=== PATIENT | female | born 1995 | race Two or more races ===

== ENCOUNTER 2024-11-17 11:10 | Day surgery (SDC) | payer MEDICAID, SELFPAY ==
[2024-11-16 14:30] VITALS: BMI 33.1
--- NOTE | 2024-11-16 15:36 | ESHP_ITS ---
RE: DUC MENDEZ : 1995 DATE OF ADMISSION: 11/17/2024 The patient came to my office on 11/16/2024 for detailed preop history and physical examination. HISTORY OF PRESENT COMPLAINT: The patient fell down and injured her right wrist. The injury happened about 2 weeks back. The patient went to emergency room and x-ray was obtained and splint was given. I saw her for the first time on 11/14/2024. The patient has a Clifford fracture. The injury happened on 11/04/2024. There is some numbness in the outer 4 digits as well. PAST MEDICAL HISTORY: No history of diabetes mellitus, high blood pressure, asthma or seizures. PAST SURGICAL HISTORY: Nil. DRUG HISTORY: Nil except pain medication. ALLERGIES: NIL KNOWN. FAMILY HISTORY AND SOCIAL HISTORY: Noncontributory in this case. PHYSICAL EXAMINATION: GENERAL: Normal built lady. BMI is 30. Height is 63 inches and weight is 175 pounds. VITAL SIGNS: Pulse is 92 per minute and blood pressure is 140/86. NECK: Soft and supple. No masses felt. Trachea is centrally replaced. CARDIOVASCULAR SYSTEM: First and second heart sounds are normal. No murmur heard. RESPIRATORY SYSTEM: Bilateral vesicular breath sounds. Chest is clear. ABDOMEN: Soft. No masses felt. Bowel sounds present. EXTREMITIES: Right wrist revealed 1+ swelling and 2+ tenderness. Active range of motion of the wrist and digits are severely restricted. The patient has some dull sensation in the outer 4 digits. Neurovascularly, it is intact. ASSESSMENT AND PLAN: The patient was explained that she needs fixation with the plate and screws. Detailed discussion took place. All questions were answered. Risk with anesthesia was explained and that includes, but not limited to reaction to anesthetic agents, cardiac arrest or rarely it might be fatal. Risk with operation includes infection and if that happens, patient will need further surgical procedure. Other risks include delayed healing, wound dehiscence, etc. No guarantee is given regarding outcome of the procedure and/or relief of symptoms. Accordingly, surgery is booked for 11/17/2024. The patient is fully aware that with these kind of fracture, which is intraarticular in nature, range of motion may be restricted. Sometimes significant range of motion may be restricted. However, the operation will give the best chance for better range of motion. The patient is fully aware of that. Surgery booked for 11/17/2024. DT: 12:32:22 TT: 15:34:00 Ref: [id number] - TID: [id number]
[2024-11-16 16:34] LABS: Basophils # (Auto) 0.1 Thou/mm3 (0.0-0.2); Basophils % (Auto) 1 % (0-2.5); Eosinophils # (Auto) 0.2 Thou/mm3 (0.0-0.5); Eosinophils % (Auto) 2 % (0-10); Hematocrit 40.6 % (36.0-46.0); Hemoglobin 13.5 g/dL (12.0-16.0); Immature Granulocytes % (Auto) 0 % (0-0); Immature Granulocytes Auto 0.03 Thou/mm3 (0.00-0.00); Lymphocytes # (Auto) 2.4 Thou/mm3 (1.0-4.8); Lymphocytes % (Auto) 24 % (10-50); Mean Corpuscular HGB Conc 33.3 g/dl (31.0-37.0); Mean Corpuscular Hemoglobin 27.4 pg (25.0-35.0); Mean Corpuscular Volume 83 fL (80-100); Monocytes # (Auto) 0.6 Thou/mm3 (0.0-0.8); Monocytes % (Auto) 6 % (0-12); Neutrophils # (Auto) 6.7 Thou/mm3 (1.8-7.7); Neutrophils % (Auto) 67 % (37-80); Nucleated Red Blood Cell % 0 /100 WBC (0); Platelet Count 372 Thou/mm3 (140-440); Red Blood Count 4.92 Miln/mm3 (4.00-5.20)
[2024-11-16 16:41] LABS: Partial Thromboplastin Time 27.2 Seconds (22.0-36.0); Prothrombin Time 11.1 Seconds (9.0-12.2)
[2024-11-16 16:49] LABS: HCG Qualitative,Urine Negative
[2024-11-16 16:57] LABS: Anion Gap 9 (7-16); BUN/Creatinine Ratio 22 Ratio (12-20); Blood Urea Nitrogen 22 mg/dL (9-23); Calcium 9.8 mg/dL (8.3-10.6); Carbon Dioxide 24.7 mMol/L (20.0-31.0); Chloride 106 mMol/L (98-107); Glucose 114 mg/dL (74-106); Osmolality,Calculated 283 (275-295); Potassium 4.3 mMol/L (3.4-5.1); Sodium 140 mMol/L (136-145); eGFR > 60 See Note
[2024-11-17] VITALS (8 sets, daily range): BP systolic 123–153; BP diastolic 75–100; PULSE 82–100; RESP 12–21; TEMP 36.2–37; O2SAT 96–100; BMI 32.9
[2024-11-17] MEDS: RINGERS LACTATED 1000 ML 1,000 ML 20 ML IV (11:56)
--- NOTE | 2024-11-17 15:00 | XR_ITS ---
Examination: Right wrist 3 views Fluoroscopy Exam date and time: November 17, 2024 1551 hours INDICATIONS: Operative reduction internal fixation right wrist fracture today TECHNIQUE AND FINDINGS: 3 spot fluoroscopic AP lateral wrist films Operative reduction internal fixation fracture distal radius with anatomic alignment Orthopedic hardware satisfactory position Fluoroscopy 32 seconds radiation dose 0.58 milligray IMPRESSION: Operative reduction internal fixation fracture distal radius with anatomic alignment
--- NOTE | 2024-11-17 15:02 | SUR.PHASEI ---
pt received from OR in recovery bay 5. pt obtunded, breathing unlabored on 8l oxymask, oral airway in place. v/s stable. pt dressing to right arm cdi. report received from Dr. oCrdon and Matthias CARRILLO.
--- NOTE | 2024-11-17 15:16 | XR_ITS ---
Examination: Right wrist 2 views Technique one AP lateral right wrist 2 views Exam date and time: November 17, 2024 1540 hrs. Indications: Postop reduction wrist fracture Findings: Operative reduction internal fixation fracture distal radius with anatomic alignment Orthopedic hardware satisfactory position Impression: Operative reduction internal fixation fracture distal radius with anatomic alignment
--- NOTE | 2024-11-17 15:18 | PD.SUROPNT ---
Date of Procedure 11/17/24 Pre Op Diagnosis Displaced intra-articular fracture of the right distal radius Post Op Diagnosis Same Procedure Open reduction internal fixation with 5 hole vertical and 4 over the horizontal volar interlocking plate. Synthes implant. Findings Refer dictation Procedure Description Patient was given general endotracheal anesthesia. Once satisfactory anesthesia achieved a tourniquet was placed on right upper arm. Following that the part was thoroughly prepped and draped. After using Esmarch the tourniquet pressure was raised to 250 mmHg. Intravenous antibiotics was given at the time of anesthesia The distal fracture fragment was displaced anteriorly. There was societal injury. The wrist was manipulated and I could achieve the length by putting pressure over the volar aspect. After thoroughly prepping and draping the part the tourniquet pressure was raised to 250 mmHg Skin incision was made from wrist crease extending proximally for about 3 to 4 inches. Deeper dissection was carried out. The soft tissue was then incised. The plane was developed between flexor carpi radialis and brachioradialis muscle. The pronator quadratus muscle was exposed and it was reflected The fracture fragment was exposed. Wound was irrigated with antibiotic solution every 4 to 5 minutes Following that the soft tissue interposed between the fracture fragment was removed To that a 5 hole vertical and 4 hole horizontal plate was mounted over the volar aspect and with some manipulation it was placed nicely. Position checked on the C arm. A guidepin was passed. Following that drill hole was made into the vertical shaft and appropriate size cortical screw was placed. Patient was reassessed repeatedly checked under C arm and found to be good. Another cortical screw was placed in the vertical limb. Following that 2 cortical screws were placed in the middle at the distal fracture fragment. The screws were tightened. Position was checked under C arm and both AP and lateral and found to be very good. The fracture was very good reduced. Following that 2 interlocking screws were placed 1 on the radial side and 1 on the ulnar side Following that 2 more screws on the vertical limb was placed. Both were locking screws. Patient was repeatedly checked anesthesia and found to be extremely good Wound was irrigated with antibiotic solution every 4 to 5 minutes The soft tissue was then closed with the help of 2-0 Vicryl in an interrupted fashion. The subcu tissue was closed with 2-0 Vicryl. The skin was closed with mina 20 mL of quarter percent Marcaine was injected at the skin incision site To cleaning the wound with hydrogen peroxide solution a sterile dressing was applied. Short arm splint was applied and tourniquet pressure was released Patient tolerated procedure very well. Estimated blood loss 10 mL. Anesthesia GETA Pathology / specimen None Estimated Blood Loss 10 Surgeon Chapin Yoo MD Surgical Staff Operation Date: 11/17/24 15:00 Case Staff Anesthesiologist: Lux Cordon RN First Assistant: Zaynab Sanderson
[2024-11-17] MEDS: fentaNYL CIT INJ 50 mCg/ML AMP 2ML 25 MCG IV (15:20)
[2024-11-17] MEDS: ACETAMINOPHEN IVPB 1,000 MG/100 ML VIAL 250 MG IV (15:23)
[2024-11-17] MEDS: MORPHINE SULF INJ 10 MG/ML VIAL 3 MG IV ×2 (15:34→15:54)
--- NOTE | 2024-11-17 15:46 | SUR.PHASEII ---
pt able to tolerate oral fluids without difficulty swallowing or nausea/vomiting.
--- NOTE | 2024-11-17 16:24 | SUR.PHASEII ---
pt awake and alert, breathing unlabored on room air. v/s stable. pt able to ambulate to wheelchair with steady gait. d/c instructions given with Gaston in room, all questions answered. pt d/c via wheelchair with all belongings.
== END 2024-11-17 16:24 | disposition home or self-care (01) ==
PROVIDERS: Anesthesiology; PCP Physician Assistant; Referring Provider Orthopaedic Surgery; Visit Provider Orthopaedic Surgery
PROC: (CPT 25608; principal; 2024-11-17 15:00)
DX: S52.571A Other intraarticular fracture of lower end of right radius, initial encounter for closed fracture (principal)
CPT/HCPCS: 25608; 36415; 73100; 76000; 80048; 81025; 85025; 85610; 85730; A4217; A4649; C1713; J0131; J0690; J1100; J1580; J1885; J2250; J2270; J2405; J2704; J3010; J3490; J7120; J0665